=== PATIENT | male | born 1965 | race Two or more races ===

== ENCOUNTER 2017-12-22 19:00 | Emergency (ER) | payer MEDICAID ==
[~2017-12-22] VITALS: Ht 167.6 cm; Wt 75.3 kg
[2017-12-22] MEDS ORDERED: VANCOMYCIN PER PHARMACY MC PRN (21:00)
[2017-12-22] MEDS ORDERED: AMPICILLIN/SULBACTAM 1,500 MG in SODIUM CHLORIDE 0.9% 50 ML IV ONE (21:00)
[2017-12-22 21:04] LABS: MEAN CORPUSCULAR HEMOGLOBIN 25.2 pg (27.5-34.5); MEAN CORPUSCULAR HGB CONC 32.5 g/dL (33.2-36.2); MEAN CORPUSCULAR VOLUME 77.6 fL (81-97); MEAN PLATELET VOLUME 8.5 fL (7.4-10.4); PLATELET COUNT 376 x10^3/uL (130-400); RED BLOOD COUNT 5.29 x10^6/uL (4.38-5.82)
[2017-12-22 21:13] LABS: ALBUMIN 3.5 g/dL (3.4-5.0); ANION GAP 8 mmol/L (5-15); CALCIUM 8.6 mg/dL (8.5-10.1); CHLORIDE 107 mmol/L (98-107); CREATININE 1.11 mg/dL (0.7-1.3)
[2017-12-22 21:19] LABS: MD MORPH REVIEW ONLY
[2017-12-22 21:20] LABS: BASOPHILS # (AUTO) 0.04 x10^3/uL (0-0.1); BASOPHILS % (AUTO) 1 % (0-1); EOSINOPHILS # (AUTO) 0.14 x10^3/uL (0-0.4); EOSINOPHILS % (AUTO) 2 % (1-7); LYMPHOCYTES # (AUTO) 1.78 x10^3/uL (1-3.4); LYMPHOCYTES % (AUTO) 23 % (22-44); MONOCYTES # (AUTO) 0.57 x10^3/uL (0.2-0.8); MONOCYTES % (AUTO) 7 % (2-9); NEUTROPHILS # (AUTO) 5.16 x10^3/uL (1.8-6.8); NEUTROPHILS % (AUTO) 67 % (42-75)
[2017-12-22 21:21] LABS: ANISOCYTOSIS 2+; MICROCYTOSIS 1+; OVALOCYTES 1+
[2017-12-22 21:23] LABS: <PLATELET ESTIMATE> ADEQUATE; <PLT MORPHOLOGY> NORMAL PLT MORPH
[2017-12-22 21:28] VITALS: BP 147/93
[2017-12-22] MEDS ORDERED: VANCOMYCIN 1,500 MG in SODIUM CHLORIDE 0.9% 250 ML IV ONE (21:30)
[2017-12-22 21:40] LABS: SEDIMENTATION RATE 18 mm/hr (0-10)
== END 2017-12-22 22:56 | disposition home or self-care (01) ==
LOC: ED 21:38
DX: M86.661 Other chronic osteomyelitis, right tibia and fibula (principal); M86.662 Other chronic osteomyelitis, left tibia and fibula; F11.10 Opioid abuse, uncomplicated; B19.20 Unspecified viral hepatitis C without hepatic coma; Z72.89 Other problems related to lifestyle; Z91.14 Patient's other noncompliance with medication regimen
CPT/HCPCS: 36415; 80048; 82040; 83605; 85025; 85651; 86140; 87040; 99285